=== PATIENT | female | born 1945 | race African-American/Black ===

== ENCOUNTER 2022-04-12 20:11 | Emergency (ER) | payer BC, OTHER ==
[~2022-04-12] VITALS: Ht 177.8 cm; Wt 90.0 kg
[2022-04-12] MEDS ORDERED: METHYLPREDNISOLONE SOD SUCC 125 MG/2 ML VIAL IV STA (20:17)
[2022-04-12] MEDS ORDERED: ALBUTEROL (0.083%) 2.5MG/3ML NEB HHN STA (20:17)
[2022-04-12] MEDS ORDERED: ASPIRIN 81MG TABLET PO ONE (20:30)
[2022-04-12 20:58] LABS: BASOPHILS % 0.4 % (0.0-2.0); HEMATOCRIT. 42.2 % (36.0-48.0); HEMOGLOBIN. 13.4 g/dL (12.0-16.0); LYMPHOCYTES % 43.8 % (20.0-50.0); MEAN CORPUSCULAR HEMOGLOBIN 30.9 pg (28.0-32.0); MEAN CORPUSCULAR VOLUME 97.4 fL (81.0-99.0); MEAN PLATELET VOLUME 9.1 fl (7.4-10.4); MONOCYTES % 5.6 % (2.0-8.0); NEUTROPHILS % 48.2 % (40.0-76.0); PLATELET 116 x1000/uL (130-400); RED BLOOD CELL COUNT 4.34 mill/uL (4.2-5.4); RED CELL DISTRIBUTION WIDTH 14.9 % (11.6-14.6)
[2022-04-12 21:02] LABS: CHLORIDE 112 mEq/L (98-107)
[2022-04-12] MEDS ORDERED: ALBU6.7H9 INH (22:23)
[2022-04-12] MEDS ORDERED: ALBU05 NEB (22:23)
[2022-04-12] MEDS ORDERED: P50 MT (22:23)
[2022-04-12 22:30] VITALS: BP 138/54
== END 2022-04-12 22:50 | disposition home or self-care (01) ==
LOC: ER 20:11 → CANBEDREQ 04-13 02:08
DX: J45.901 Unspecified asthma with (acute) exacerbation (principal); E03.9 Hypothyroidism, unspecified; Z85.3 Personal history of malignant neoplasm of breast; Z98.890 Other specified postprocedural states; Z88.6 Allergy status to analgesic agent; Z88.2 Allergy status to sulfonamides
CPT/HCPCS: 36415; 71045; 80053; 83880; 84484; 85025; 93005; 94640; 96374; 99285; J2930